=== PATIENT | male | born 1965 | race Caucasian/White ===

== ENCOUNTER 2023-10-26 08:01 | Inpatient (IN) ==
[2023-10-26] MEDS: OPTIRAY 320 125ml IV ONE (08:25)
--- NOTE | 2023-10-26 08:26 | CT Scan Report ---
CT OF THE HEAD WITHOUT CONTRAST CLINICAL HISTORY: neuro deficit, acute stroke suspected. Left-sided facial numbness and droop. COMPARISON STUDY: Head CT and MRI of the brain September 12, 2017. TECHNIQUE: Helical axial images of the head were obtained without IV contrast. Automated exposure con trol was utilized for the study. A dose lowering technique was utilized adhering to the principles o f ALARA. FINDINGS: No acute intracranial hemorrhage, midline shift or mass effect is present. The ventricular system is unremarkable. The basal cisterns are patent. No extra-axial collections are present. There are no findings to suggest acute dural sinus thrombosis or acute territorial infarct. No significant calvarial abnormalities are present. Visualized portions of the sinuses and mastoid air cells are disha ar. IMPRESSION: No acute intracranial findings. ACT 112: Negative or not required by law. Electronically signed by: Sammy Flores M.D. 10/26/2023 8:25 AM
--- NOTE | 2023-10-26 08:30 | CT Scan Report ---
CT ANGIOGRAPHY OF THE NECK WITH CONTRAST CLINICAL HISTORY: neuro deficit, acute stroke suspected COMPARISON STUDY: Carotid ultrasound September 13, 2017. Technique: CT angiography of the carotid and vertebral arteries was obtained using Optiray and 3D rec onstruction on an independent workstation. NASCET criteria was utilized. Automated exposure control was utilized for the study. A dose lowering technique was utilized adhering to the principles of ALA RA. CT DOSE: 1273.75 mGy.cm Findings: Visualized portions of the apices are unremarkable. There is no cervical lymphadenopathy. T here are no cervical spine fractures. The bilateral common carotid, cervical internal carotid and wandy tebral arteries are patent. No stenosis is present. There is no aneurysm or dissection within the nec k. No atherosclerotic plaque is identified IMPRESSION: Unremarkable CTA of the neck. ACT 112: Negative or not required by law. Electronically signed by: Sammy Flores M.D. 10/26/2023 8:28 AM
--- NOTE | 2023-10-26 08:31 | CT Scan Report ---
CTA ANGIOGRAPHY OF THE HEAD CLINICAL HISTORY: neuro deficit, acute stroke suspected COMPARISON STUDY: MRA head September 12, 2017. TECHNIQUE: Helical axial images of the head were obtained following uneventful intravenous administr ation of 120 cc of Optiray. Sagittal and coronal reconstructions were viewed as well as maximal inten sity projections on an independent 3-D workstation. Automated exposure control was utilized for the study. A dose lowering technique was utilized adhering to the principles of ALARA. FINDINGS: No acute intracranial hemorrhage, midline shift or mass effect is present. Ventricular syst em is normal. Basal cisterns are patent. There are no extra-axial collections. The bilateral M1, M2, A1 and A2 segments are patent. No vessel occlusion is identified. The posterior circulation is also i ntact. No intracranial aneurysm. IMPRESSION: Unremarkable CTA of the head. ACT 112: Negative or not required by law. Electronically signed by: Sammy Flores M.D. 10/26/2023 8:30 AM
--- NOTE | 2023-10-26 08:39 | Emergency Department Note ---
Impression & Plan Left facial numbness, Stroke-like symptoms, History of TIA (transient ischemic attack), Patent foramen ovale ED Provider Note NAME: DELILAH CLAROS AGE: 58 SEX: M : 1965 ARRIVES VIA: Walk-In INFORMANT: [Patient] ED PROVIDER(S): [Adrian Milner MD] Patient first seen by me at 8:20 AM as he had returned from CT scan CHIEF COMPLAINT: Stroke symptoms HISTORY OF PRESENT ILLNESS: The patient is a 58-year-old male with a history of previous TIA. He was diagnosed with a PFO. He is on a daily aspirin. The patient states that this morning he woke up at 630 and was in his baseline health. At 730, 50 minutes ago, he noticed left facial and tongue numbness and some left thigh numbness. By the time he got to our hospital, the facial numbness was markedly improved and the left thigh numbness has resolved. The patient did feel that his left face was droopy when he looked in the mirror at home. There has been no headache, no difficulty with gait, no difficulty with balance. His arms and legs do not feel weak. He has not had cough, cold or congestion. He did take his baby aspirin this morning. Of note, no recent prolonged travel by car or plane or train. PMHx/PSHx/Social Hx: See Below PHYSICAL EXAM: GENERAL: Patient is in no acute distress. HEENT: No acute trauma, normocephalic atraumatic, mucous membranes moist, no nasal congestion. NECK: No stridor, no adenopathy, no meningismus, trachea is midline. LUNGS: Clear to auscultation bilaterally, no wheeze, no rhonchi, breath sounds equal. HEART: Without murmurs gallops or rubs, regular rate and rhythm. ABDOMEN: Soft, nontender, no peritonitis. EXTREMITIES: No cyanosis, full range of motion of all the joints without pain or difficulty. NEUROLOGIC: Oriented x 3. The patient does have a very subtle left facial droop when he speaks. There is no speech slur, no extremity drift or cerebellar dysfunction. SKIN: No jaundice, no diaphoresis. DIFFERENTIAL DIAGNOSIS: Intracranial bleeding, stroke or TIA, dysrhythmia, Broderick's palsy, electrolyte imbalance, among others. EMERGENCY DEPARTMENT PROCEDURES: MEDICAL DECISION MAKING: There is no leukocytosis or concerning anemia. There is a normal platelet count. No renal failure or significant electrolyte abnormality. No concerning liver enzyme elevation. ECG showed a normal sinus rhythm, no ischemia. Cardiac enzyme testing x 1 was not consistent with acute cardiac injury. Brain CT showed no acute bleed or mass effect. CTA of the brain and neck was unremarkable. On exam, the patient had a very subtle left facial droop. No extremity weakness or drift. The patient was aggressively managed. He did meet criteria for a stroke alert. The patient was seen by the [facility] stroke neurologist. I discussion for the use if TNK occurred. The patient was improving and declined TNK administration. The patient was given oral Plavix, 300 mg. This was given at the advice of the stroke neurologist. The patient will be hospitalized. The patient does feel, since he has been in the ED, that he has made some significant improvement above and beyond when he first arrived. He has minimal left facial numbness now compared to previous. As per the nursing staff, the left facial droop seems to be resolving. The patient very likely had a small stroke or TIA, further workup/care is required inpatient. Prior/Outside records/notes reviewed: None ECG per my interpretation: Indication was possible stroke. The ECG shows a normal sinus rhythm with a rate of 83. There is no acute ST elevation, no PVCs. The QTc is 415. Continuous Cardiac Monitoring per my interpretation: An order was placed for continuous cardiac monitoring. The monitor shows a rate of 86 with normal sinus rhythm. Imaging/x-ray results per my interpretation: Chronic Medical/Social conditions affecting care: History of previous TIA with PFO. Care/Management discussed with: [facility] stroke neurologist on-call-Dr. Ruiz. Case management, the on-call hospitalist. Level of care consideration(s): After review of the information above and other included data: --I believe the patient requires escalation of care to admission Critical Care Note: I have personally spent 47 minutes of critical care time in the direct management of this patient. This includes bedside care, interpretation of diagnostic studies, and testing, discussion with consultants, patient, and family members, and other required patient management activities. This 47 minutes is in excess of all separately billable procedures. DISPOSITION: Admission Past Med/Surg History Problem List (Updated 10/26/23 @ 09:30 by Adrian Milner MD) Patent foramen ovale (Acute) History of TIA (transient ischemic attack) (Acute) Stroke-like symptoms (Acute) Left facial numbness (Acute) Allergic rhinitis due to animals Medical History TIA (transient ischemic attack) Family History Other Hypertension No family history of adverse response to anesthesia No family history of bleeding disorder Stroke Social History Smoking Status: Never smoker Hx Alcohol Use: No Hx Substance Use: No Feels Safe at Home: Yes Allergies Allergies Allergy/AdvReac Type Severity Reaction Status Date / Time amoxicillin Allergy Unknown HIVES Verified 09/05/23 08:09 Home Meds Home Medications Medication Instructions Recorded Confirmed aspirin 81 mg tablet,delayed 81 mg PO DAILY 05/09/21 09/05/23 release cetirizine 10 mg capsule (Zyrtec) 10 mg PO DAILY PRN 12/31/22 09/05/23 Results & Data (ED) Vital Signs Vital Signs - 24 hr 10/26/23 08:04 10/26/23 08:41 10/26/23 08:41 Temperature 36.9 C Temperature Source Temporal Artery Scan Pulse Rate 70 Pulse Rate from SpO2 Sensor Respiratory Rate 18 Respiratory Effort / Characteristics Non-Labored Spontaneous Respiratory Depth Normal Blood Pressure 144/96 H 128/77 128/77 Blood Pressure Mean 112 106 106 Blood Pressure Position Sitting Pulse Oximetry 97 Oxygen Delivery Method Room Air Sepsis Recent Fever Within 48 Hours No Sepsis New/Unexplained Change in Mental Status N/A Sepsis Action Taken by Nursing No Action Required 10/26/23 08:42 10/26/23 08:45 Temperature Temperature Source Pulse Rate 86 81 Pulse Rate from SpO2 Sensor 78 Respiratory Rate 12 Respiratory Effort / Characteristics Respiratory Depth Blood Pressure Blood Pressure Mean Blood Pressure Position Pulse Oximetry 97 Oxygen Delivery Method Sepsis Recent Fever Within 48 Hours Sepsis New/Unexplained Change in Mental Status Sepsis Action Taken by Residential Medications Current Medication List: was personally reviewed by me Laboratory Data Attestation: I reviewed the patient's lab results. 10/26/23 08:29 10/26/23 08:29 Lab Results 10/26/23 10/26/23 Range/Units 08:29 08:31 WBC 7.51 (4.8-10.8) K/ul RBC 5.06 (4.70-6.10) M/uL Hgb 15.2 (14.0-18.0) g/dl POC Hgb 14.6 (14.0-18.0) g/dl Hct 45.4 (42.0-52.0) % POC Hct 43 (42-52) % MCV 89.7 (80.0-100.0) fL MCH 30.0 (25.0-34.0) pg MCHC 33.5 (32.0-36.0) g/dL RDW Std Deviation 44.2 (36.4-46.3) fL RDW Coeff of Rex 13.4 (11.5-14.5) % Plt Count 243 (130-400) K/uL MPV 9.5 (9.4-12.4) fL Immature Gran % (Auto) 0.3 % Neut % (Auto) 54.4 % Lymph % (Auto) 31.2 % [place] % (Auto) 8.3 % Eos % (Auto) 5.3 % Baso % (Auto) 0.5 % Neut # (Auto) 4.09 (1.40-6.50) K/uL Lymph # (Auto) 2.34 (1.20-3.40) K/uL [place] # (Auto) 0.62 H (0.11-0.59) K/uL Eos # (Auto) 0.40 (0.00-0.50) K/uL Baso # (Auto) 0.04 (0.00-0.20) K/uL Immature Gran # (Auto) 0.02 (0.01-0.20) K/uL PT Cancelled INR Cancelled APTT Cancelled PTT Ratio Cancelled POC Sodium 137 (135-144) mmol/L Sodium 135 L (136-145) mmol/L POC Potassium 4.7 (3.3-5.0) mmol/L Potassium 4.1 (3.5-5.1) mmol/L POC Chloride 103 (101-112) mmol/L Chloride 104 (98-107) mmol/L Carbon Dioxide 25 (21-32) mmol/L POC Total CO2 25 (24-31) mmol/L Anion Gap 6 (3-11) POC Anion Gap 14.0 L (16-25) mmol/L POC BUN 15 (7-18) mg/dl BUN 13 (6-23) mg/dl Creatinine 0.98 (0.6-1.4) mg/dl POC Creatinine 1.1 (0.6-1.3) mg/dl Est Cr Clr Drug Dosing 90.8 ml/min Est GFR ( Amer) 97.4 ml/min Est GFR (Non-Af Amer) 84.1 ml/min BUN/Creatinine Ratio 13.3 (10-20) Glucose 97 (70-99(Fasting)) mg/dl POC Glucose 99 (70-99) mg/dl POC Glucose (other) 97 (70-99) mg/dl Calcium 8.6 (8.6-10.3) mg/dl POC Ioniz Calcium Roberto 1.15 (1.12-1.32) mmol/l Magnesium 1.9 (1.7-2.4) mg/dl Total Bilirubin 0.5 (0.2-1.0) mg/dl AST 13 (13-39) U/L ALT 11 (7-52) U/L Alkaline Phosphatase 46 (34-104) U/L Troponin I High Sens 3.1 (0-20) pg/ml Total Protein 6.6 (6.0-8.3) gm/dl Albumin 3.9 (3.4-5.0) gm/dl Globulin 2.7 (2.5-4.0) gm/dl Albumin/Globulin Ratio 1.4 (0.9-2) Administered Medications Discontinued Medications Clopidogrel Bisulfate (Clopidogrel Bisulfate 300 Mg Tab) 300 mg PO NOW STA Stop: 10/26/23 08:45 Last Admin: 10/26/23 09:00 Dose: 300 mg Documented By: SARA Ioversol (Optiray 320 125ml) 120 ml IV ONCE ONE Stop: 10/26/23 08:25 Last Admin: 10/26/23 08:25 Dose: 120 ml Documented By: KONG Imaging Data Radiologist's Impression: Head CT 10/26/23 08:11 CT OF THE HEAD WITHOUT CONTRAST CLINICAL HISTORY: neuro deficit, acute stroke suspected. Left-sided facial numbness and droop. COMPARISON STUDY: Head CT and MRI of the brain September 12, 2017. TECHNIQUE: Helical axial images of the head were obtained without IV contrast. Automated exposure control was utilized for the study. A dose lowering technique was utilized adhering to the principles of ALARA. FINDINGS: No acute intracranial hemorrhage, midline shift or mass effect is present. The ventricular system is unremarkable. The basal cisterns are patent. No extra-axial collections are present. There are no findings to suggest acute dural sinus thrombosis or acute territorial infarct. No significant calvarial abnormalities are present. Visualized portions of the sinuses and mastoid air cells are clear. IMPRESSION: No acute intracranial findings. ACT 112: Negative or not required by law. Electronically signed by: Sammy Flores M.D. 10/26/2023 8:25 AM Head CTA 10/26/23 08:11 CTA ANGIOGRAPHY OF THE HEAD CLINICAL HISTORY: neuro deficit, acute stroke suspected COMPARISON STUDY: MRA head September 12, 2017. TECHNIQUE: Helical axial images of the head were obtained following uneventful intravenous administration of 120 cc of Optiray. Sagittal and coronal reconstructions were viewed as well as maximal intensity projections on an independent 3-D workstation. Automated exposure control was utilized for the study. A dose lowering technique was utilized adhering to the principles of ALARA. FINDINGS: No acute intracranial hemorrhage, midline shift or mass effect is present. Ventricular system is normal. Basal cisterns are patent. There are no extra-axial collections. The bilateral M1, M2, A1 and A2 segments are patent. No vessel occlusion is identified. The posterior circulation is also intact. No intracranial aneurysm. IMPRESSION: Unremarkable CTA of the head. ACT 112: Negative or not required by law. Electronically signed by: Sammy Flores M.D. 10/26/2023 8:30 AM Neck CTA 10/26/23 08:11 CT ANGIOGRAPHY OF THE NECK WITH CONTRAST CLINICAL HISTORY: neuro deficit, acute stroke suspected COMPARISON STUDY: Carotid ultrasound September 13, 2017. Technique: CT angiography of the carotid and vertebral arteries was obtained using Optiray and 3D reconstruction on an independent workstation. NASCET criteria was utilized. Automated exposure control was utilized for the study. A dose lowering technique was utilized adhering to the principles of ALARA. CT DOSE: 1273.75 mGy.cm Findings: Visualized portions of the apices are unremarkable. There is no cervical lymphadenopathy. There are no cervical spine fractures. The bilateral common carotid, cervical internal carotid and vertebral arteries are patent. No stenosis is present. There is no aneurysm or dissection within the neck. No atherosclerotic plaque is identified IMPRESSION: Unremarkable CTA of the neck. ACT 112: Negative or not required by law. Electronically signed by: Sammy Flores M.D. 10/26/2023 8:28 AM Discharge Plan Visit Data Chief Complaint: Stroke/CVA Symptoms Stated Complaint: HISTORY OF PFO, FACIAL NUMBNESS, SPEECH SLURRING ED Provider: Adrian Milner Discharge Problem: Left facial numbness, Stroke-like symptoms, History of TIA (transient ischemic attack), Patent foramen ovale Patient Disposition: Admitted As Inpatient Condition: Fair Forms Stand Alone Forms: [facility] Prescriptions Prescriptions: No Action Zyrtec 10 mg capsule 10 mg PO DAILY PRN aspirin 81 mg tablet,delayed release (DR/EC) 81 mg PO DAILY Referrals Referrals: Luc Bentley [Primary Care Provider] -
[2023-10-26 08:43] LABS: iSTAT Creatinine 1.1 mg/dl (0.6-1.3); iSTAT Hemoglobin 14.6 g/dl (14.0-18.0); iSTAT Ionized Calcium 1.15 mmol/l (1.12-1.32); iSTAT Potassium 4.7 mmol/L (3.3-5.0)
[2023-10-26 08:48] LABS: Basophils # (auto) 0.04 K/uL (0.00-0.20); Basophils % (auto) 0.5 %; Eosinophils % (auto) 5.3 %; Hematocrit (blood only) 45.4 % (42.0-52.0); Hemoglobin 15.2 g/dl (14.0-18.0); Immature Granulocytes # (auto) 0.02 K/uL (0.01-0.20); Immature Granulocytes % (auto) 0.3 %; Lymphocytes # (auto) 2.34 K/uL (1.20-3.40); Lymphocytes % (auto) 31.2 %; Mean Corpuscular Hgb Conc 33.5 g/dL (32.0-36.0); Mean Corpuscular Volume 89.7 fL (80.0-100.0); Mean Platelet Volume 9.5 fL (9.4-12.4); Monocytes # (auto) 0.62 K/uL (0.11-0.59); Monocytes % (auto) 8.3 %; Neutrophils # (auto) 4.09 K/uL (1.40-6.50); Neutrophils % (auto) 54.4 %; Platelet Count 243 K/uL (130-400); RDW Coefficient of Variation 13.4 % (11.5-14.5); RDW Standard Deviation 44.2 fL (36.4-46.3); Red Blood Count 5.06 M/uL (4.70-6.10); White Blood Count 7.51 K/ul (4.8-10.8)
[2023-10-26] MEDS: CLOPIDOGREL BISULFATE 300 MG TAB PO STA (09:00)
[2023-10-26 09:07] LABS: Albumin Globulin Ratio 1.4 (0.9-2); Albumin Level 3.9 gm/dl (3.4-5.0); BUN Creatinine Ratio 13.3 (10-20); Bilirubin,Total 0.5 mg/dl (0.2-1.0); Calcium 8.6 mg/dl (8.6-10.3); Creatinine Clr Calc Pharmacy 90.8 ml/min; Est GFR (African American) 97.4 ml/min; Est GFR (Non-African American) 84.1 ml/min; Globulin 2.7 gm/dl (2.5-4.0); Magnesium 1.9 mg/dl (1.7-2.4); Potassium 4.1 mmol/L (3.5-5.1); Total Protein 6.6 gm/dl (6.0-8.3)
[2023-10-26 09:13] LABS: Troponin I High Sensitivity 3.1 pg/ml (0-20)
--- NOTE | 2023-10-26 10:03 | History & Physical Report ---
Date of Service October 26, 2023 Assessment & Plan (1) Stroke-like symptoms: Plan: Admit to the PCU on telemetry Currently stable and without neurologic symptoms Presented to the ED this a.m. with acute onset of left-sided tongue/facial numbness, left-sided facial droop, and posterior calf pain in the left lower extremity with associated left lower extremity numbness which began around 7:30 AM this morning Woke up around 6:30 AM this morning in his normal state of health Was made a stroke alert in the ED on arrival CTA head and brain without contrast, CTA of the head, and CTA of the neck were negative for acute findings Symptoms have completely resolved at the time of the admission Was evaluated by [facility] who did not recommend TNK administration as his symptoms had significantly improved by the time of their evaluation. They did recommend loading the patient with Plavix, which he was given prior to admission. Will continue patient on dual antiplatelet therapy at this time Will start 20 mg Crestor daily now as patient had myalgias with Lipitor Will obtain MRI of the brain without contrast, TTE, bilateral venous Dopplers for further evaluation Will consult both neurology and cardiology to get their input on ongoing secondary prevention and need of possible closure of his known PFO Every 4 hours neurochecks, permissive hypertension for the next 24 hours, fall precautions, PT/OT consults Heart healthy diet If venous Dopplers are negative for DVT we will start bilateral SCDs for DVT prophylaxis AM CBC, CMP, mag, PT/INR, hemoglobin A1c, and fasting lipid panel (2) Patent foramen ovale: Plan: Patient was diagnosed with a PFO in 2018 after his first TIA Was started on baby aspirin and Lipitor daily, still taking 81 mg aspirin prince y but his Lipitor was discontinued due to myalgias Patient explains that he was followed by cardiology outpatient after his initial TIA and PFO closure was considered, however, he states that his previous order checker packer processer recommended holding off on PFO closure at that time as they felt the benefits did not outweigh the risks at that time Follow stroke workup, neurology consult, and cardiology consult for ongoing treatment and further secondary prevention moving forward Patient would want to consider PFO closure to reduce her stroke risk moving forward Plan The patient was discussed with Dr. Espana at the time of the admission History of Present Illness Chief Complaint: Stroke-like symptoms Primary Care Provider: Luc Bentley Norman is a 58-year-old male with a past medical history of previously diagnosed PFO (on daily baby aspirin) who presented to the [facility] ED on 10/26/2023 due to acute onset of left sided facial numbness, left- sided facial droop, and tongue numbness which began around 7:30 this morning. Patient reportedly woke up around 6:30 this morning in his normal state of health. On arrival to the ED he was made a stroke alert. Vitals remained stable while in the ED. CT of the head and brain without contrast and CTA of the head and neck with contrast were read as negative for acute findings. The patient was evaluated by [facility] neurologist. Due to the patient's symptoms significantly improving by the time of ED arrival TNK was not administered, per ED staff the patient was also in agreement with holding TNK administration. The patient was given a loading dose of 300 mg p.o. Plavix per [facility] recommendations and will be admitted for ongoing workup and treatment. Patient was sitting in bed in no acute distress at the time of exam. He confirms the above history and confirms that he took his 81 mg aspirin this a.m. shortly after symptoms started. He presented to the ED due to symptoms being similar to his first TIA in 2018 but this time symptoms were on the left side instead of the right. Confirms he was previously diagnosed with a PFO and was followed by cardiology at [facility] who initially considered surgical closure of the PFO but later decided against as they thought the risk of the procedure was high versus the benefit. He states that he has been on 81 mg aspirin daily since 2018 and was previously on Lipitor which was stopped after he started developed myalgias. No other neurologic episodes since 2018 besides today. States the left-sided tongue numbness, left-sided facial numbness, left-sided droop have resolved. Only other symptoms this a.m. besides his left-sided tongue/facial numbness and left-sided facial droop was pain in the posterior aspect of his left calf and mild left lower extremity numbness. He confirms that these have also resolved. Denies tobacco or recent alcohol use, no previous history of blood clots. States that his uncle had a massive stroke in his 40s but he is unsure of the otology. Denies recent headache, changes in vision, hearing, taste, smell, weakness and any extremity, ambulatory dysfunction, chest pain, shortness of breath, cough, nausea/vomiting, abdominal pain, dysuria/hematuria, melena, and recent trauma. Confirms he is a full code Please refer to Dr. Espana's attestation for any changes to the treatment plan Allergies Allergy/AdvReac Type Severity Reaction Status Date / Time amoxicillin Allergy Unknown HIVES Verified 09/05/23 08:09 Home Medications Medication Instructions Recorded Confirmed Type aspirin 81 mg tablet,delayed 81 mg PO DAILY 05/09/21 10/26/23 History release cetirizine 10 mg capsule (Zyrtec) 10 mg PO DAILY PRN ALLERGIES 12/31/22 10/26/23 History latanoprost 0.005 % eye drops 1 drp OPB HS 10/26/23 10/26/23 History Past Med/Surg History Problem List (Updated 10/26/23 @ 09:30 by Adrian Milner MD) Patent foramen ovale (Acute) History of TIA (transient ischemic attack) (Acute) Stroke-like symptoms (Acute) Left facial numbness (Acute) Allergic rhinitis due to animals Medical History TIA (transient ischemic attack) Family History Other Hypertension No family history of adverse response to anesthesia No family history of bleeding disorder Stroke Social History Smoking Status: Never smoker Hx Alcohol Use: No Hx Substance Use: No Feels Safe at Home: Yes Physical Exam Physical Exam: Physical Exam: General: In no acute distress, stated age, well-nourished, good hygiene HEENT: Normocephalic, atraumatic, no scleral icterus, pupils around round, symmetrical, and reactive to light, moist mucus membranes, trachea midline, no thyromegaly Chest/Pulm: No respiratory distress, symmetrical chest expansion, clear breath sounds throughout Cardiac: RRR, no murmurs noted Abdomen: Negative for ascites and bruising, normoactive bowel sounds, soft, non-tender to palpation throughout Musculoskeletal: Symmetrical and without signs of acute trauma, upper and lower extremities with full ROM, no atrophy, spasticity, or flaccidity Extremities: Radial, dorsalis pedis, and posterior tibial pulses are intact and symmetrical, no edema noted in the BL LE's Skin: Warm, dry, no rashes , lesions, or scars noted Neuro: Alert and oriented to person, place, month, year, and president, no focal defects, CN II-XII tested and intact, negative cerebellar and pronator drift testing in the bilateral upper extremities, no tremors noted Psych: No acute distress, calm and cooperative during the exam Results & Data Results & Data Vital Signs (Past 12 Hours) Vital Signs Temp Pulse Resp BP Pulse Ox O2 Del Method 10/26/23 09:42 60 16 135/88 96 10/26/23 09:01 121/80 10/26/23 09:01 121/80 10/26/23 08:54 65 20 98 10/26/23 08:45 81 12 97 10/26/23 08:42 86 10/26/23 08:41 128/77 10/26/23 08:41 128/77 10/26/23 08:04 36.9 C 70 18 144/96 H 97 Room Air Laboratory Results Abnormal lab results 10/26/23 10/26/23 Range/Units 08:29 08:31 Pope # (Auto) 0.62 H (0.11-0.59) K/uL Sodium 135 L (136-145) mmol/L POC Anion Gap 14.0 L (16-25) mmol/L Diagnostic Findings Head CT 10/26/23 08:11 CT OF THE HEAD WITHOUT CONTRAST CLINICAL HISTORY: neuro deficit, acute stroke suspected. Left-sided facial numbness and droop. COMPARISON STUDY: Head CT and MRI of the brain September 12, 2017. TECHNIQUE: Helical axial images of the head were obtained without IV contrast. Automated exposure control was utilized for the study. A dose lowering technique was utilized adhering to the principles of ALARA. FINDINGS: No acute intracranial hemorrhage, midline shift or mass effect is present. The ventricular system is unremarkable. The basal cisterns are patent. No extra-axial collections are present. There are no findings to suggest acute dural sinus thrombosis or acute territorial infarct. No significant calvarial a bnormalities are present. Visualized portions of the sinuses and mastoid air cells are clear. IMPRESSION: No acute intracranial findings. ACT 112: Negative or not required by law. Electronically signed by: Sammy Flores M.D. 10/26/2023 8:25 AM Head CTA 10/26/23 08:11 CTA ANGIOGRAPHY OF THE HEAD CLINICAL HISTORY: neuro deficit, acute stroke suspected COMPARISON STUDY: MRA head September 12, 2017. TECHNIQUE: Helical axial images of the head were obtained following uneventful intravenous administration of 120 cc of Optiray. Sagittal and coronal reconstructions were viewed as well as maximal intensity projections on an independent 3-D workstation. Automated exposure control was utilized for the study. A dose lowering technique was utilized adhering to the principles of ALARA. FINDINGS: No acute intracranial hemorrhage, midline shift or mass effect is present. Ventricular system is normal. Basal cisterns are patent. There are no extra-axial collections. The bilateral M1, M2, A1 and A2 segments are patent. No vessel occlusion is identified. The posterior circulation is also intact. No intracranial aneurysm. IMPRESSION: Unremarkable CTA of the head. ACT 112: Negative or not required by law. Electronically signed by: Sammy Flores M.D. 10/26/2023 8:30 AM Neck CTA 10/26/23 08:11 CT ANGIOGRAPHY OF THE NECK WITH CONTRAST CLINICAL HISTORY: neuro deficit, acute stroke suspected COMPARISON STUDY: Carotid ultrasound September 13, 2017. Technique: CT angiography of the carotid and vertebral arteries was obtained using Optiray and 3D reconstruction on an independent workstation. NASCET criteria was utilized. Automated exposure control was utilized for the study. A dose lowering technique was utilized adhering to the principles of ALARA. CT DOSE: 1273.75 mGy.cm Findings: Visualized portions of the apices are unremarkable. There is no cervical lymphadenopathy. There are no cervical spine fractures. The bilateral common carotid, cervical internal carotid and vertebral arteries are patent. No stenosis is present. There is no aneurysm or dissection within the neck. No ath erosclerotic plaque is identified IMPRESSION: Unremarkable CTA of the neck. ACT 112: Negative or not required by law. Electronically signed by: Sammy Flores M.D. 10/26/2023 8:28 AM ECG Additional Comments: Normal sinus rhythm with minimally flattened T waves in the anterior leads but without other acute ST segment or T wave changes Code Status & VTE Plan Code Status Full code VTE Prophylaxis Plan VTE Prophylaxis will be ordered: Yes Supervising Physician Co-Signing Physician Notes patient with h/o TIA, PFO was seen and examined this morning with PA , presents with TIA symptoms, involving tongue, face started around 7;30 am today , resolved at the time of examination, CT/CTA brain, neck no acute findings, blood work, vital are normal head atraumatic neck supple chest CTA B/L heart s1s2 regular abdomen softa, nt, nd, bs present extremities no edema, no clubbing, no cyanosis neuro AAO times 3 plan recurrent TIA, PFO, on ASA, loaded with Plavix MRI brain neuro/card consult neuro checks PG Care Time/CCT Total # of Minutes Spent Total Time Spent with Patient: Total time spent is greater than 50% in coordination of care (as documented) at patient's floor/unit and/or counseling patient: Coding [place] [address] INT INP/OBS CARE 3/75MIN Patient Type Established Medical Decision Making High Complexity Diagnoses Stroke-like symptoms R29.90 Patent foramen ovale Q21.12
[2023-10-26] MEDS ORDERED: PHARMACIST DISCHARGE MED REC CONSULT PRN ×2 (10:08→10:30)
[2023-10-26 10:18] LABS: Partial Thromboplastin Time 27 Seconds (21-31); Prothrombin Time 10.9 Seconds (9.0-12.0)
[2023-10-26] MEDS ORDERED: ACETAMINOPHEN 325 MG TAB PO PRN (10:33)
[2023-10-26] MEDS: ROSUVASTATIN CALCIUM 20 MG TAB PO SCH (11:55)
--- NOTE | 2023-10-26 11:58 | Electrocardiogram Report ---
Test Reason : Blood Pressure : */* mmHG Vent. Rate : 83 BPM Atrial Rate : 83 BPM P-R Int : 152 ms QRS Dur : 80 ms QT Int : 354 ms P-R-T Axes : 56 67 53 degrees QTcB Int : 415 ms Normal sinus rhythm Normal ECG When compared with ECG of 12-Sep-2017 14:23, Premature atrial complexes are no longer Present Confirmed by Norman Major ([id number]) on 10/26/2023 11:58:28 AM Referred By: REFERRED SELF Confirmed By: Norman Major
--- NOTE | 2023-10-26 12:15 | Magnetic Resonance Report ---
MRI OF THE BRAIN WITHOUT CONTRAST CLINICAL HISTORY: stroke vs TIA COMPARISON STUDY: MRI of the brain September 12, 2017. Head CT and CTA of the head performed earlier today . TECHNIQUE: Utilizing a 1.5 Abeba magnet and dedicated coil, multiplanar, multiecho imaging of the bra in was performed without IV contrast. FINDINGS: There is a small 7 mm focus of restricted diffusion, likely within the posterior right fron margarette lobe shown on axial image 17 of 24. This is hypointense on the ADC map. There is minimal associat ed FLAIR signal abnormality. No additional foci of restricted diffusion are present. Ventricular syst em is normal. Basal cisterns are patent. No acute intracranial hemorrhage, midline shift or mass effe ct is present. IMPRESSION: Small acute infarct, measuring 7 mm, within the posterior right frontal lobe. Minimal as sociated FLAIR signal abnormality. No mass effect. No hemorrhage. ACT 112: Negative or not required by law. Electronically signed by: Sammy Flores M.D. 10/26/2023 12:13 PM
--- NOTE | 2023-10-26 13:21 | Cardiology Consultation ---
Date of Consultation October 26, 2023 Assessment & Plan (1) Ischemic cerebrovascular accident (CVA) of frontal lobe: (2) Patent foramen ovale: (3) Dyslipidemia: Plan 58-year-old man with acute frontal ischemic appearing CVA and previously recognized patent foramen ovale. His ROPE score is 5, placing him low to mid range likelihood for paradoxic embolism as etiology of his CVA. However, given male gender, modest family history, dyslipidemia (cholesterol/HDL ratio 5.1), and age 58, this could well be a conventional ischemic stroke rather than a paradoxic embolism. Given uncertainties regarding etiology of his CVA, agree with lower extremity Dopplers to exclude deep vein thrombosis (which would make paradoxic embolism more likely), ongoing telemetry monitoring (to evaluate for atrial fibrillation), treatment of his dyslipidemia (restarting a statin), and initiation of an additional antiplatelet agent (given loading dose of clopidogrel, already on aspirin). Although heparin is no longer routinely indicated for CVA, in patient with waxing/waning symptoms (onset of hand paresthesias after resolution of other paresthesias) in patient with no prior history of bleeding issues, would favor at least temporary anticoagulation with heparin. Would first clear this with telestroke neurologist, on the chance that they might still consider giving TNK for ischemic CVA. Depending upon results of telemetry, venous Doppler, and neurology input, could then decide on dual antiplatelet therapy versus anticoagulation as outpatient. Similarly, we will need to reevaluate for possible closure of patent foramen ovale, but this would not be an acute intervention and can await accumulation of further data. Will continue to follow. History of Present Illness Reason for Consultation: 2nd TIA, Hx PFO (never repaired) Requesting Physician: Geena Espana MD Attending Physician: Geena Espana MD History of Present Illness 58-year-old man with known patent foramen ovale (positive bubble study in 2018 transthoracic echocardiogram), prior TIA, admitted today with transient left- sided paresthesias and evidence of a small acute infarct posterior right frontal lobe on MRI. His prior TIA in 2018 involved right sided paresthesias, no evidence of infarct, PFO identified and evaluated at [facility] for possible closure device but conservative management was pursued and he remain on aspirin 81 mg daily. He denies any interim neurologic symptoms, tachypalpitations, leg pain or swelling, or other cardiac or neurologic symptoms after 2018 and prior to today. He awoke at 6:30 AM this morning and an hour later he developed acute onset left-sided facial numbness with a facial droop as well as left lower extremity numbness. During my evaluation, he noted paresthesia of his thumb and forefinger which resolved after a few minutes. He has history of dyslipidemia but no history of ongoing tobacco use, hypertension, or diabetes. Family history notable for an uncle with a CVA in his 40s. At the time my evaluation, after his left hand paresthesias resolved, he was symptom-free. Allergies Allergy/AdvReac Type Severity Reaction Status Date / Time amoxicillin Allergy Unknown HIVES Verified 09/05/23 08:09 Home Medications Medication Instructions Recorded Confirmed Type aspirin 81 mg tablet,delayed 81 mg PO DAILY 05/09/21 10/26/23 History release cetirizine 10 mg capsule (Zyrtec) 10 mg PO DAILY PRN ALLERGIES 12/31/22 10/26/23 History latanoprost 0.005 % eye drops 1 drp OPB HS 10/26/23 10/26/23 History Patient History Medical History (Updated 10/26/23 @ 13:36 by Norman Major MD) TIA (transient ischemic attack) (2018) Family History Other Hypertension No family history of adverse response to anesthesia No family history of bleeding disorder Stroke Social History Smoking Status: Never smoker Hx Alcohol Use: No Hx Substance Use: No Feels Safe at Home: Yes Physical Exam Physical Exam: Adult white male no acute distress. Afebrile. BP 152/90 mmHg. Pulse 66 bpm and regular. Respiration 15 and unlabored. Skin: no ecchymoses or generalized lesions. HEENT: unremarkable. Neck: JVP at the clavicle at 90 degrees, no carotid bruits. Lungs: clear. Cardiac: regular rhythm, normal S1-2, no murmur. Abdomen: benign. Extremities: no edema, pulses intact. Neurologic: normal affect and conversation, left hand paresthesias for a few minutes, then nonfocal. Results & Data Laboratory Results Sodium 135, otherwise normal electrolytes, BUN 13, creatinine 0.98. Normal PT/PTT. Diagnostic Findings ECG showed sinus rhythm at 83 bpm and was completely unremarkable. Chest x-ray unremarkable. Head and neck CT unremarkable. Brain MRI with 7 mm acute infarct posterior right frontal lobe. PG Care Time/CCT Total # of Minutes Spent Total Time Spent with Patient: Total time spent is greater than 50% in coordination of care (as documented) at patient's floor/unit and/or counseling patient: Coding Level of Care Code 71509 IN/OBS CONSULT LVL 4,60M Diagnoses Ischemic cerebrovascular accident (CVA) of frontal lobe I63.9 Patent foramen ovale Q21.12 Dyslipidemia E78.5
--- NOTE | 2023-10-26 13:28 | XRay Report ---
XR chest 1V portable CLINICAL HISTORY: stroke alert COMPARISON STUDY: No previous studies for comparison. FINDINGS: Lung volumes are normal. Lungs are clear. There is no pneumothorax or pleural effusion. Car diac size is normal. Mediastinal contours are normal. There is no evidence for pulmonary edema. IMPRESSION: No acute cardiopulmonary findings. ACT 112: Negative or not required by law. Electronically signed by: Sammy Flores M.D. 10/26/2023 1:27 PM
--- NOTE | 2023-10-26 13:47 | Ultrasound Report ---
BILATERAL LOWER EXTREMITY VENOUS DOPPLER CLINICAL HISTORY: TIA, leg pain/numbness COMPARISON STUDY: No previous studies for comparison. TECHNIQUE: Sonography of the deep venous system of the bilateral lower extremities was performed. Co mpression and augmentation were evaluated. FINDINGS: The bilateral common femoral, superficial femoral and popliteal veins were compressible. A ugmentation was normal. Flow was shown within the deep calf vessels. IMPRESSION: No evidence of deep venous thrombus within the bilateral lower extremities. ACT 112: Negative or not required by law. Electronically signed by: Sammy Flores M.D. 10/26/2023 1:45 PM
[2023-10-26] MEDS: HEPARIN SOD (PORCINE) 1000 UNIT/ML ONE (13:52)
[2023-10-26] MEDS: HEPARIN 25000 UNIT/500 ML D5W IV ONE (13:53)
[2023-10-26] MEDS: HEPARIN SODIUM/DEXTROSE 25,000 UNITS/500 ML BAG IV SCH (15:00)
[2023-10-26] MEDS: HEPARIN SOD (PORCINE) 1000 UNIT/ML IV ONE (16:06)
[2023-10-26] MEDS: Heparin IV Adult Wt-Based Standard w/ INITIAL Bolus Protocol IV SCH (16:06)
[2023-10-27 06:02] LABS: Basophils # (auto) 0.04 K/uL (0.00-0.20); Basophils % (auto) 0.5 %; Eosinophils # (auto) 0.44 K/uL (0.00-0.50); Eosinophils % (auto) 5.4 %; Hematocrit (blood only) 46.2 % (42.0-52.0); Hemoglobin 15.5 g/dl (14.0-18.0); Immature Granulocytes # (auto) 0.01 K/uL (0.01-0.20); Immature Granulocytes % (auto) 0.1 %; Lymphocytes # (auto) 2.88 K/uL (1.20-3.40); Lymphocytes % (auto) 35.6 %; Mean Corpuscular Hemoglobin 29.9 pg (25.0-34.0); Mean Corpuscular Hgb Conc 33.5 g/dL (32.0-36.0); Mean Corpuscular Volume 89.2 fL (80.0-100.0); Mean Platelet Volume 9.8 fL (9.4-12.4); Monocytes % (auto) 7.4 %; Neutrophils # (auto) 4.12 K/uL (1.40-6.50); Platelet Count 233 K/uL (130-400); RDW Coefficient of Variation 13.5 % (11.5-14.5); Red Blood Count 5.18 M/uL (4.70-6.10); White Blood Count 8.09 K/ul (4.8-10.8)
[2023-10-27 06:16] LABS: Albumin Globulin Ratio 1.5 (0.9-2); BUN Creatinine Ratio 12.8 (10-20); Bilirubin,Total 0.6 mg/dl (0.2-1.0); Calcium 8.8 mg/dl (8.6-10.3); Chol HDL Ratio 4.9 (0-5); Creatinine Clr Calc Pharmacy 101.3 ml/min; Est GFR (Non-African American) 94.9 ml/min; Globulin 2.7 gm/dl (2.5-4.0); Potassium 3.9 mmol/L (3.5-5.1); Total Protein 6.7 gm/dl (6.0-8.3)
[2023-10-27 06:25] LABS: ANTI-Xa, UFH(UnfractionatedHep 0.57 IU/ml (0.3-0.7); Prothrombin Time 11.1 Seconds (9.0-12.0)
[2023-10-27 07:17] LABS: Estimated Average Glucose 114 mg/dl; Hemoglobin A1C 5.6 % (4.5-5.6)
--- NOTE | 2023-10-27 08:14 | Neurology Consultation ---
Date of Consultation October 27, 2023 Assessment & Plan (1) Ischemic cerebrovascular accident (CVA) of frontal lobe: History of Present Illness Attending Physician: Marina Sahni MD History of Present Illness S: pt this morning feeling well. his left side numbness essentially resolved. no weakness. no headache. mri with small rt frontal ischemic stroke. pt on heparin currently. DVT u/s negative. Admission HPI: Norman is a 58-year-old male with a past medical history of previously diagnosed PFO (on daily baby aspirin) who presented to the [facility] ED on 10/26/2023 due to acute onset of left sided facial numbness, left-sided facial droop, and tongue numbness which began around 7:30 this morning. Patient reportedly woke up around 6:30 this morning in his normal state of health. On arrival to the ED he was made a stroke alert. Vitals remained stable while in the ED. CT of the head and brain without contrast and CTA of the head and neck with contrast were read as negative for acute findings. The patient was evaluated by [facility] neurologist. Due to the patient's symptoms significantly improving by the time of ED arrival TNK was not administered, per ED staff the patient was also in agreement with holding TNK administration. The patient was given a loading dose of 300 mg p.o. Plavix per [facility] recommendations and will be admitted for ongoing workup and treatment. Patient was sitting in bed in no acute distress at the time of exam. He confirms the above history and confirms that he took his 81 mg aspirin this a.m. shortly after symptoms started. He presented to the ED due to symptoms being similar to his first TIA in 2018 but this time symptoms were on the left side instead of the right. Confirms he was previously diagnosed with a PFO and was followed by cardiology at [place] who initially considered surgical closure of the PFO but later decided against as they thought the risk of the procedure was high versus the benefit. He states that he has been on 81 mg aspirin daily since 2018 and was previously on Lipitor which was stopped after he started developed myalgias. No other neurologic episodes since 2018 besides today. States the left-sided tongue numbness, left-sided facial numbness, left-sided droop have resolved. Only other symptoms this a.m. besides his left-sided tongue/facial numbness and left-sided facial droop was pain in the posterior aspect of his left calf and mild left lower extremity numbness. He confirms that these have also resolved. Denies tobacco or recent alcohol use, no previous history of blood clots. States that his uncle had a massive stroke in his 40s but he is unsure of the otology. Denies recent headache, changes in vision, hearing, taste, smell, weakness and any extremity, ambulatory dysfunction, chest pain, shortness of breath, cough, nausea/vomiting, abdominal pain, dysuria/hematuria, melena, and recent trauma. Confirms he is a full code Allergies Allergy/AdvReac Type Severity Reaction Status Date / Time amoxicillin Allergy Unknown HIVES Verified 09/05/23 08:09 Home Medications Medication Instructions Recorded Confirmed Type aspirin 81 mg tablet,delayed 81 mg PO DAILY 05/09/21 10/26/23 History release cetirizine 10 mg capsule (Zyrtec) 10 mg PO DAILY PRN ALLERGIES 12/31/22 10/26/23 History latanoprost 0.005 % eye drops 1 drp OPB HS 10/26/23 10/26/23 History Patient History Medical History (Updated 10/26/23 @ 13:36 by Norman Major MD) TIA (transient ischemic attack) (2018) Family History Other Hypertension No family history of adverse response to anesthesia No family history of bleeding disorder Stroke Social History Smoking Status: Never smoker Second Hand Exposure: No; Do You Dip or Chew Tobacco: No; Tobacco Cessation Education Requested by Patient: No Hx Alcohol Use: No Hx Substance Use: No Preferred Language: Lao Production Assistant Required: No Beliefs That Will Affect Care: None Current Living Situation: Alone Other Information That Helps Us Care for You: No Feels Safe at Home: Yes Review of Systems Review of Systems: All systems reviewed & are unremarkable except as noted in Subjective Constitutional: as per Subjective / HPI Eyes: as per Subjective / HPI Ear, Nose, Mouth, Throat: as per Subjective / HPI Respiratory: as per Subjective / HPI Cardiovascular: as per Subjective / HPI Gastrointestinal: as per Subjective / HPI Musculoskeletal: as per Subjective / HPI Integumentary: as per Subjective / HPI Neurologic: as per Subjective / HPI Psychiatric: as per Subjective / HPI Endocrine: as per Subjective / HPI Hematologic / Lymphatic: as per Subjective / HPI Allergy / Immunological: as per Subjective / HPI Exam (Neuro) Physical Exam: HEENT: normocephalic Neuro: Mental: AOx4, fluent speech, normal comprehension, no apraxia, no L/R confusion, no neglect CN: PERRL, Full EOM, symmetric face, midline T/U/P, 5/5 SCM/traps. Motor: No abnormal movements, normal tone and bulk, 5/5 t/o bilaterally Sens: intact to touch b/l grossly Coord: intact FNT b/l DTR: 2+ sym b/l Gait:deferred. Impression: 58 yo male with acute rt frontal ischemic stroke in setting of known PFO. resolved left side paresthesia now. overall stable. Recommendations: 1. Standard stroke work up as planned 2. antiplatelet therapy: at this point, ok to stop the heparin and transition him to DAPT, as overall picture less likely embolic in nature. * DAPT (dual antiplatelet therapy): ASA 81mg daily and Plavix 75mg daily (pt had loading dose yesterday already). Continue DAPT for 21 days . After that, can continue single antiplatelet therapy (either ASA or Plavix). 3. Images: TTE with bubble pending, CT A head/neck negative. 4. Permissive Hypertension for next 24 hrs. Keep SBP goal range less than 220. Avoid hypotension. Do not stop beta-sheryl if on it. 5. If noted for large intracranial vesse l stenosis, slow reduction of BP and allowing permissive HTN next 5-7 days. 6. Long-term SBP goal less than 130. 7. Plenty of hydration including IV flui d if possible (use isotonic solution) next 1-2 days. Avoid hypovolemia and hypotension. 8. Initiate DVT prevention therapy. 9. Avoid hypoglycemia, serum glucose goa l during hospitalization: 140-180. 10. Long-term HgA1c goal less than 7. 11. Start statin if not on it and no abs olute contraindication, long-term LDL goal less than 70. 12. Head of bed up 30 degrees if possibl e. 14. Telemetry monitoring. Consider director long term care cardiac monitoring, i.e. MCOT (mobile cardiac outpatient telemetry) or ICM (insertable personnel monitor, e.g. LINQ), if never had care home cardiac monitoring done previously. And if found to have atrial flutter or fibrillation, should consider anticoagulation therapy if no contraindication. 16. Consult Occupational therapy evaluat ion to see if he needs any assistance. consider closing of PFO as outpt when following up with cardiology. Chart reviewed I have spent more than 50% educating patient about potential diagnosis and neurological evaluation and coordinating care with patient's treatment team. Total time spent (including chart review and coordination of care): 60 min (this includes chart review). Results & Data Vital Signs (Past 12 Hours) Vital Signs Temp Pulse Pulse Resp BP Pulse Ox O2 Del Method 10/27/23 07:10 36.6 C 63 18 113/81 97 Room Air 10/27/23 05:42 74 10/27/23 03:27 36.5 C 62 18 110/73 98 Room Air 10/26/23 22:58 36.8 C 58 L 18 129/80 97 Room Air 10/26/23 21:47 63 PG Care Time/CCT Total # of Minutes Spent Total Time Spent with Patient: Total time spent is greater than 50% in coordination of care (as documented) at patient's floor/unit and/or counseling patient: Coding Level of Care Code 80493 IN/OBS CONSULT LVL 4,60M Diagnoses Ischemic cerebrovascular accident (CVA) of frontal lobe I63.9
--- NOTE | 2023-10-27 08:38 | XCELERA ---
[id number]
[2023-10-27] MEDS ORDERED: ATORVASTATIN 40 MG TAB PO SCH (09:00)
[2023-10-27] MEDS: PLASMA-LYTE A 1,000 ML IV SCH (10:01)
[2023-10-27] MEDS: ASPIRIN 81 MG ECTAB PO SCH (10:08)
[2023-10-27] MEDS: CLOPIDOGREL BISULFATE 75 MG TAB PO SCH (10:09)
--- NOTE | 2023-10-27 10:38 | Hospitalist Progress Note ---
Date of Service October 27, 2023 Assessment & Plan (1) Ischemic cerebrovascular accident (CVA) of frontal lobe: (2) Patent foramen ovale: Plan #Ischemic CVA of Frontal Lobe CT/CTA of Head and Neck negative MRI demonstrates 7mm posterior frontal lobe infarct Venous Doppler of b/l LE negative TTE negative NSR on monitor Labs incl lipid panel WNL Initiate ASA/Plavix x 21 days Crestor 20mg daily DVT PPx PT/OT/Speech consults pending Consider [facility] cardiac monitoring at [place] Consider closure of PFO as outpatient #PFO Dopplers negative for DVT, less likely contributory to event Consider closure as outpatient FENGI: Heart healthy Code status: full DVT prophylaxis: Heparin Isolation: none Disposition: PCU Admission and Anticipated Discharge Date Admission Date: October 26, 2023 Supervising Physician Co-Signing Physician Notes Attending Physician Supervision Note: I independently interviewed and examined the patient and verified the schwarz history and physical, reviewed labs and image studies and agree with findings and care plan noted above. Subjective Patient seen and evaluated at bedside this morning. No acute events overnight. No acute complaints at this time. Feels he is back to baseline. Echo normal. Neuro recommends txn to ASA, Plavix, permissive HTN, Review of Systems Review of Systems: reviewed, per HPI Physical Exam Physical Exam: Constitutional: well-appearing, no acute distress HEENT: NCAT, no conjunctival injection CV: regular rhythm, no murmur appreciated, extremities well-perfused, no LE edema Resp: CTABL, no wheezes/rales/rhonchi appreciated, no increased work of breathing GI: soft, nondistended, nontender, BS normoactive MSK: no gross deformities appreciated Skin: warm, dry, no rash appreciated Neuro: alert, oriented, no focal neurologic deficit appreciated Results & Data Results & Data Vital Signs (Past 12 Hours) Vital Signs Temp Pulse Pulse Resp BP Pulse Ox O2 Del Method 10/27/23 07:10 36.6 C 63 18 113/81 97 Room Air 10/27/23 05:42 74 10/27/23 03:27 36.5 C 62 18 110/73 98 Room Air 10/26/23 22:58 36.8 C 58 L 18 129/80 97 Room Air Resident Activity Tracking Resident Involvement: Resident Care Provided Care Provided: Adult Hospital Medicine
--- NOTE | 2023-10-27 12:43 | Cardiology Progress Note ---
Date of Service October 27, 2023 Assessment & Plan (1) Ischemic cerebrovascular accident (CVA) of frontal lobe: (2) PFO with atrial septal aneurysm: (3) Dyslipidemia: Plan Agree with dual antiplatelet therapy for 21 days, since he was on aspirin at the time of his event he should remain on a more intensive antiplatelet regimen. As such, would recommend switching from aspirin/clopidogrel to clopidogrel alone after 21 days. Okay to stop heparin given absence of further neurologic symptoms. Will arrange for MCOT monitor (he can pick this up at our offices upon discharge tomorrow) to exclude atrial fibrillation as a potential cardioembolic source. No evidence of atrial dysrhythmia by history or telemetry thus far, but important to more definitively exclude. Will refer to tertiary care ([place]) to evaluate for atrial septal occlusion device, although etiology of his stroke is unclear the possibility of paradoxic embolism rises with the presence of atrial septal aneurysm and if he could undergo a catheter-based device placement at low risk this would be fairly definitive management for his PFO/atrial septal aneurysm. Would aggressively manage lipids, if he is unable to tolerate rosuvastatin could consider PCSK9 inhibitor. I will arrange for follow-up with me in 1 month (after his MCOT is completed) and will make outpatient arrangements for his [place] referral. Admission and Anticipated Discharge Date Admission Date: October 26, 2023 Subjective Uneventful night, no further neurologic symptoms. Telemetry showed sinus rhythm in the 60 to 70 bpm range without significant ectopy or dysrhythmias. Echo generally benign but did show an atrial septal aneurysm, previous study in 2018 demonstrated [id number] shunting with presumed patent foramen ovale. No somatic complaints at the time of my evaluation this morning. Physical Exam Physical Exam: No distress. Afebrile. BP normotensive. Pulse 70 bpm and regular. Skin: no ecchymoses or generalized lesions. HEENT: unremarkable. Neck: JVP at the clavicle at 90 degrees, no carotid bruits. Lungs: clear. Cardiac: regular rhythm, normal S1-2, no murmur. Abdomen: benign. Extremities: no edema, pulses intact. Neurologic: normal affect and conversation, nonfocal. Results & Data Vital Signs (Past 12 Hours) Vital Signs Temp Pulse Pulse Resp BP Pulse Ox O2 Del Method 10/27/23 10:39 98.1 F 70 18 107/79 97 Room Air 10/27/23 07:10 97.9 F 63 18 113/81 97 Room Air 10/27/23 05:42 74 10/27/23 03:27 97.7 F 62 18 110/73 98 Room Air Laboratory Results Normal electrolytes, BUN 11, creatinine 0.86. Diagnostic Findings Echocardiogram showed normal LV size and systolic function (EF 55 to 60%), normal left ventricular wall thickness, normal right heart, mild pulmonic valve regurgitation, normal RVSP. Bubble study was not repeated (seen on 2018 study), an atrial septal aneurysm was noted (mobility of the atrial septum greater than 1 cm). PG Care Time/CCT Total # of Minutes Spent Total Time Spent with Patient: Total time spent is greater than 50% in coordination of care (as documented) at patient's floor/unit and/or counseling patient: Coding Level of Care Code 27813 SUB INP/OBS CARE 3/50MIN Diagnoses Ischemic cerebrovascular accident (CVA) of frontal lobe I63.9 PFO with atrial septal aneurysm Q21.12; I25.3 Dyslipidemia E78.5
[2023-10-27] MEDS: HEPARIN SOD 5,000 UNIT/0.5 ML VIAL SQ SCH (20:26)
[2023-10-28 03:53] VITALS: RESP 16; TEMP 97.7
[2023-10-28 06:01] LABS: Basophils # (auto) 0.04 K/uL (0.00-0.20); Basophils % (auto) 0.5 %; Eosinophils # (auto) 0.45 K/uL (0.00-0.50); Eosinophils % (auto) 5.4 %; Hematocrit (blood only) 45.5 % (42.0-52.0); Hemoglobin 15.4 g/dl (14.0-18.0); Immature Granulocytes # (auto) 0.02 K/uL (0.01-0.20); Immature Granulocytes % (auto) 0.2 %; Lymphocytes % (auto) 36.3 %; Mean Corpuscular Hemoglobin 30.4 pg (25.0-34.0); Mean Corpuscular Hgb Conc 33.8 g/dL (32.0-36.0); Mean Corpuscular Volume 89.7 fL (80.0-100.0); Monocytes # (auto) 0.67 K/uL (0.11-0.59); Monocytes % (auto) 8.1 %; Neutrophils # (auto) 4.09 K/uL (1.40-6.50); Neutrophils % (auto) 49.5 %; Platelet Count 254 K/uL (130-400); RDW Coefficient of Variation 13.4 % (11.5-14.5); RDW Standard Deviation 44.4 fL (36.4-46.3); Red Blood Count 5.07 M/uL (4.70-6.10); White Blood Count 8.27 K/ul (4.8-10.8)
[2023-10-28 06:20] LABS: Albumin Globulin Ratio 1.4 (0.9-2); Albumin Level 3.7 gm/dl (3.4-5.0); BUN Creatinine Ratio 13.4 (10-20); Bilirubin,Total 0.4 mg/dl (0.2-1.0); Calcium 8.5 mg/dl (8.6-10.3); Creatinine Clr Calc Pharmacy 89.8 ml/min; Est GFR (African American) 98.6 ml/min; Est GFR (Non-African American) 85.1 ml/min; Globulin 2.7 gm/dl (2.5-4.0); Potassium 3.9 mmol/L (3.5-5.1); Total Protein 6.4 gm/dl (6.0-8.3)
[2023-10-28 06:41] LABS: ANTI-Xa, UFH(UnfractionatedHep < 0.10 IU/ml (0.3-0.7); Prothrombin Time 10.7 Seconds (9.0-12.0)
[2023-10-28 06:53] VITALS: BP 104/68; PULSE 62; O2SAT 97
--- NOTE | 2023-10-28 09:20 | Pharmacy Report ---
- Date of Service October 28, 2023 - Pharmacy CVA/TIA Medication Review Medications to Prevent Stroke handout has been added to the patients discharge packet. Antiplatelet(s) * clopidogrel 75 mg * Aspirin 81mg Cholesterol * High intensity statin: rosuvastatin 20 mg daily DVT Prophylaxis * Heparin SQ Therapeutic Anticoagulation * No history of Afib/Aflutter noted, but patient to receive MCOT monitor upon discharge to exclude A. fib. Type 2 Diabetes * Patient does not have T2DM
[2023-10-28] MEDS ORDERED: STROKE PATIENT DISCHARGE STA (10:11)
--- NOTE | 2023-10-28 10:15 | Discharge Summary ---
Date of Service October 28, 2023 Admission HPI Per Admitting Provider Norman is a 58-year-old male with a past medical history of previously diagnosed PFO (on daily baby aspirin) who presented to the [facility] ED on 10/26/2023 due to acute onset of left sided facial numbness, left- sided facial droop, and tongue numbness which began around 7:30 this morning. Patient reportedly woke up around 6:30 this morning in his normal state of health. On arrival to the ED he was made a stroke alert. Vitals remained stable while in the ED. CT of the head and brain without contrast and CTA of the head and neck with contrast were read as negative for acute findings. The patient was evaluated by [facility] neurologist. Due to the patient's symptoms significantly improving by the time of ED arrival TNK was not administered, per ED staff the patient was also in agreement with holding TNK administration. The patient was given a loading dose of 300 mg p.o. Plavix per [facility] teleroke recommendations and will be admitted for ongoing workup and treatment. Patient was sitting in bed in no acute distress at the time of exam. He confirms the above history and confirms that he took his 81 mg aspirin this a.m. shortly after symptoms started. He presented to the ED due to symptoms being similar to his first TIA in 2018 but this time symptoms were on the left side instead of the right. Confirms he was previously diagnosed with a PFO and was followed by cardiology at [facility] who initially considered surgical closure of the PFO but later decided against as they thought the risk of the procedure was high versus the benefit. He states that he has been on 81 mg aspirin daily since 2018 and was previously on Lipitor which was stopped after he started developed myalgias. No other neurologic episodes since 2018 besides today. States the left-sided tongue numbness, left-sided facial numbness, left-sided droop have resolved. Only other symptoms this a.m. besides his left-sided tongue/facial numbness and left-sided facial droop was pain in the posterior aspect of his left calf and mild left lower extremity numbness. He confirms that these have also resolved. Denies tobacco or recent alcohol use, no previous history of blood clots. States that his uncle had a massive stroke in his 40s but he is unsure of the otology. Denies recent headache, changes in vision, hearing, taste, smell, weakness and any extremity, ambulatory dysfunction, chest pain, shortness of breath, cough, nausea/vomiting, abdominal pain, dysuria/hematuria, melena, and recent trauma. Confirms he is a full code Please refer to Dr. Espana's attestation for any changes to the treatment plan Admission Exam Per Admitting Provider General: In no acute distress, stated age, well-nourished, good hygiene HEENT: Normocephalic, atraumatic, no scleral icterus, pupils around round, symmetrical, and reactive to light, moist mucus membranes, trachea midline, no thyromegaly Chest/Pulm: No respiratory distress, symmetrical chest expansion, clear breath sounds throughout Cardiac: RRR, no murmurs noted Abdomen: Negative for ascites and bruising, normoactive bowel sounds, soft, non- tender to palpation throughout Musculoskeletal: Symmetrical and without signs of acute trauma, upper and lower extremities with full ROM, no atrophy, spasticity, or flaccidity Extremities: Radial, dorsalis pedis, and posterior tibial pulses are intact and symmetrical, no edema noted in the BL LE's Skin: Warm, dry, no rashes , lesions, or scars noted Neuro: Alert and oriented to person, place, month, year, and president, no focal defects, CN II-XII tested and intact, negative cerebellar and pronator drift testing in the bilateral upper extremities, no tremors noted Psych: No acute distress, calm and cooperative during the exam Principal Diagnosis Stroke Discharge Exam Constitutional: well-appearing, no acute distress HEENT: NCAT, no conjunctival injection CV: regular rhythm, no murmur appreciated, extremities well-perfused, no LE edema Resp: CTABL, no wheezes/rales/rhonchi appreciated, no increased work of breathing GI: soft, nondistended, nontender, BS normoactive MSK: no gross deformities appreciated Skin: warm, dry, no rash appreciated Neuro: alert, oriented, no focal neurologic deficit appreciated Discharge Data Allergies Allergy/AdvReac Type Severity Reaction Status Date / Time amoxicillin Allergy Unknown HIVES Verified 09/05/23 08:09 Consultations 10/26/23 09:03 ED Decision to Admit Stat 10/26/23 10:36 Consult Cardiology Routine Consult Neurology Routine Ordered Studies 10/26/23 08:11 CT angio head w con Stat CT angio neck with con Stat CT head/brain wo con Stat 10/26/23 10:31 MRI Brain [MR brain wo con] Urgent 10/26/23 10:39 US venous doppler LE BI Routine Hospital Course (1) Ischemic cerebrovascular accident (CVA) of frontal lobe: (2) Patent foramen ovale: Plan #Ischemic CVA of Frontal Lobe CT/CTA of Head and Neck negative MRI demonstrates 7mm posterior frontal lobe infarct Venous Doppler of b/l LE negative TTE negative NSR on monitor Labs incl lipid panel WNL Initiate ASA/Plavix x 21 days Crestor 20mg daily DVT PPx PT/OT/Speech consults pending Consider long term care phlebotomist cardiac monitoring at dc Consider closure of PFO as outpatient #PFO Dopplers negative for DVT, less likely contributory to event Consider closure as outpatient FENGI: Heart healthy Code status: full DVT prophylaxis: Heparin Isolation: none Disposition: PCU Total Time Total Time Spent Total Time Spent (In Minutes): <30 Discharge Plan Discharge Items Patient Disposition: Home - Self-Care Reason For Visit: stroke like symptoms Discharge Diagnosis: Stroke Condition on Discharge: Fair Activity: Resume your previous activity Activity Comment: as tolerated Non-emergency contact: Primary Care Provider and Neurologist Call non-emergency contact if: you have any medication questions Follow-up/Referrals: Antwan Small DO [Resident] - 11/07/23 11:05 am Diet: Heart Healthy Addtl Attending Provider Instructions: You were admitted to the hospital for stroke. You were treated with aspirin and Plavix. You were also started on rosuvastatin (Crestor). You will continue to take these medications going forward. Fortunately, your stroke was small and did not result in any residual deficit. A discharge summary will be sent to your primary care physician to ensure continuity of care. Please bring this discharge summary with you to your next office appointment so that your provider can review it at that time. Follow-up appointments: You have a hospital follow up appointment with Dr. Antwan Small 11/07/23 with an arrival time of 11:05am. Keep all your follow-up appointments as already scheduled. If you cannot make an appointment, notify your provider. Medications: Your medication list has been reviewed and reconciled upon discharge to ensure accuracy and continuity of care. An updated list of all your medications is included with your hospital discharge paperwork. Please review this list closely, and make note of any changes. We sent a new medication called Plavix (Clopidogrel) to your pharmacy. Take Plavix (75mg) one tablet daily for. We sent a new medication called Crestor (rosuvastatin) to your pharmacy. Take Crestor (20mg) one tablet daily. You should continue to take a baby aspirin daily for 3 weeks. If you have any issues filling these prescriptions, please call [phone] and ask to leave a message for Dr. Antwan Small. Take your medications as instructed; do not skip a dose of your medicines. Make sure all of your doctors know every medicine you are taking (including xern-pda-havpfhq medicines, vitamins, and supplements). Call your primary care provider before taking any new medicines (including inth-gkx-tatvlgz medicines, vitamins, and supplements), because some of these may interact with your current medications, or may make your symptoms worse. Tell your primary care provider if you cannot afford your medications. CONTACT YOUR PRIMARY CARE PROVIDER if you experience any of the following: Difficulty following your treatment plan, or difficulty taking medications CALL 911 OR GO TO THE EMERGENCY DEPARTMENT if you experience any of the following: Sudden, severe abdominal pain or nausea/vomiting Severe chest pain, or chest pain that radiates (moves) to your jaw or arm Sudden, severe shortness of breath or difficulty breathing Thank you for allowing us to participate in your care. Pending Studies at Discharge: No Stand-Alone Forms: My [facility], Medications to Prevent Stroke Medications and DC Order Prescriptions: New clopidogrel 75 mg Tablet 75 mg PO DAILY Qty: 30 0RF rosuvastatin 20 mg Tablet 20 mg PO DAILY Qty: 30 0RF Continued Zyrtec 10 mg capsule 10 mg PO DAILY PRN (Reason: ALLERGIES) aspirin 81 mg tablet,delayed release (DR/EC) 81 mg PO DAILY latanoprost 0.005 % drops 1 drp OPB HS Discharge Orders: Discharge Order (Routine); Ordered 10/28/23 Ordered By: Antwan Small Admission Data Admit Date/Time: 10/26/23 10:08 Attending Provider: Karlos Loaiza Admit Provider: Geena Espana Primary Care Provider: Luc Bentley Other Providers: Anika Rodrigues Anthony F.; Duncan Kendall Other Interventions: Discharge Summary Assessment (RN) Last Done: 10/28/23 10:19 Supervising Physician Co-Signing Physician Notes I personally examined the patient and verified all schwarz points of history and exam, discussed case, and agree with decision making with Dr Small feels good and would very much like to go home. Discussed ongoing management. Vitals noted, in general he is awake and alert pleasant no distress. HEENT normocephalic atraumatic mucous membranes moist. Breathing unlabored no accessory muscle use good effort. Skin without rashes pallor or icterus. Neuro without focal deficits. Strokedual antiplatelets, statin, outpatient follow- up. PFOHershey follow-up. Cardiac monitoring. Otherwise as above. Resident Activity Tracking Resident Involvement: Resident Care Provided Care Provided: Adult Hospital Medicine
--- NOTE | 2023-10-28 17:46 | Billing Data ---
Date of Service October 28, 2023 Coding Level of Care Code 10775 IN/OBS DISCH 30 MIN/LESS
--- NOTE | 2023-10-30 10:30 | Pharmacy Report ---
Pharmacist Stroke Counseling - Date of Service October 30, 2023 - Scope: Pharmacy has been consulted to provide medication discharge counseling for this patient admitted with [ischemic stroke] [hemorrhagic stroke] [transient ischemic attack] as per the Pharmacist Discharge Counseling for Stroke Patients Elizabeth col. - Medications on Discharge: Home Medications Medication Instructions Recorded Confirmed aspirin 81 mg tablet,delayed 81 mg PO DAILY 05/09/21 10/26/23 release cetirizine 10 mg capsule (Zyrtec) 10 mg PO DAILY PRN ALLERGIES 12/31/22 10/26/23 latanoprost 0.005 % eye drops 1 drp OPB HS 10/26/23 10/26/23 New Rx's Medication Instructions Recorded clopidogrel 75 mg tablet 75 mg PO DAILY #30 tabs 10/28/23 rosuvastatin 20 mg tablet 20 mg PO DAILY #30 tabs 10/28/23 - Action: The above medications, specifically ones for stroke treatment/prophylaxis, have been reviewed in detail with the patient and/or patient entry level sales representative(s) prior to discharge. This includes indication, common adverse reactions, drug interactions, and medication administration. Medication counseling has been employed using the teach-back method to ensure understanding. - Outcome: The patient and/or patient entry level sales representative(s) have demonstrated understanding of the medications. Additional comments: Was able to speak with patient regarding home medications. Patient denies any missed doses. Reviewed side effects for medications. No concerns/questions from patient. He is aware to bring an updated medication list with them to next PCP visit. Thank you for allowing pharmacy to be involved in the care of this patient. Please call [phone] with any additional questions
== END 2023-10-28 11:20 | disposition home or self-care (01) | DRG 65 ==
LOC: ED 08:01 → 2E 10:08 → SUATTDRO 10:08 → 2E 14:39